=== PATIENT | female | born 1975 | race Hispanic/Latino ===

== ENCOUNTER 2019-01-25 08:05 | Outpatient (CLI) | payer OTHER ==
--- NOTE | 2019-01-25 11:05 | CT ---
CT ABDOMEN AND PELVIS WITHOUT CONTRAST: Date: 01/25/19 COMPARISON: 12/23/02. HISTORY: Palpable hard knot and pain in the left lower quadrant of the abdomen. TECHNIQUE: Multiple contiguous axial images were obtained in a CT of the abdomen and pelvis without contrast. Co ntrast was not administered as the patient had a prior anaphylactic reaction. Oral contrast was admin istered. Coronal reformats were performed. FINDINGS: The liver, gallbladder, kidneys, adrenal glands, spleen, and pancreas are unremarkable. No free air, free fluid, or stranding changes are seen in the abdomen or pelvis. The patient is status post hysterectomy. The large and small bowel are unremarkable. The appendix is normal. No abdominal or pelvic lymphadenopathy are seen. The visualized inferior thorax is unremarkable. The bones are unremarkable. There is a marker placed at the area of palpable abnormality in the left lower quadrant of the abdomen. No underlying mass or fluid collection is seen. IMPRESSION: No focal abnormality seen at the area of palpable abnormality in the left lower quadrant of the abdom en. POS: [facility]
== END 2019-01-25 08:06 | disposition home or self-care (01) ==
LOC: CT 08:05
PROVIDERS: ATTEND Specialist
DX: R10.32 Left lower quadrant pain (principal)
CPT/HCPCS: 74176

== ENCOUNTER 2019-05-18 09:05 | Outpatient (CLI) | payer OTHER ==
--- NOTE | 2019-05-18 10:16 | MMO ---
Bilateral MAMMO Bilat Screen [facility]. CLINICAL HISTORY: Patient is 44 years old and is seen for screening. The patient has no family history of breast cancer. The patient has no personal history of cancer. VIEWS: The views performed were: bilateral craniocaudal with tomosynthesis and bilateral mediolateral oblique with tomosynthesis. FILMS COMPARED: The present examination has been compared to prior imaging studies performed at [facility] on 03/19/2012 and 12/18/2015. This study has been interpreted with the assistance of computer-aided detection. MAMMOGRAM FINDINGS: The breasts are heterogeneously dense, which could obscure a lesion on mammography. There are no suspicious masses, suspicious calcifications, or new areas of architectural distortion. IMPRESSION: THERE IS NO MAMMOGRAPHIC EVIDENCE OF MALIGNANCY. A ROUTINE FOLLOW-UP MAMMOGRAM IN 1 YEAR IS RECOMMENDED. THE RESULTS OF THIS EXAM WERE SENT TO THE PATIENT. ACR BI-RADS Category 1 - Negative MAMMOGRAPHY NOTE: 1. A negative mammogram report should not delay a biopsy if a dominant of clinically suspicious mass is present. 2. Approximately 10% to 15% of breast cancers are not detected by mammography. 3. Adenosis and dense breasts may obscure an underlying neoplasm. Reported by: GEN SOARES MD Electonically Signed: [id number]
== END 2019-05-18 09:06 | disposition home or self-care (01) ==
LOC: BICMAMMO 09:05
PROVIDERS: ATTEND Family Medicine
DX: Z12.31 Encounter for screening mammogram for malignant neoplasm of breast (principal)
CPT/HCPCS: 77063; 77067

== ENCOUNTER 2020-06-22 20:14 | Emergency (ER) | payer OTHER ==
[2020-06-22] MEDS ORDERED: Albuterol 200 PUFF (6.7GM INHALER) ONE (21:21)
[2020-06-22 21:53] LABS: #Lymphocytes 1.9 thou/uL (1.20-3.40); #Monocytes 0.4 thou/uL (0.11-0.59); #Neutrophils 3.2 thou/uL (1.40-6.50); %Basophils 0.9 % (0.0-1.0); %Eosinophils 0.5 % (0.0-10.0); %Lymphocytes 33.6 % (21.0-51.0); %Monocytes 7.7 % (0.0-10.0); %Neutrophils 57.4 % (42.0-75.0); Hemoglobin 13.3 g/dL (12.0-16.0); Mean Corpuscular HGB CONC 33.9 g/dL (32.0-36.0); Mean Corpuscular Hemoglobin 30.2 pg (27.0-31.0); Mean Corpuscular Volume 89.1 fL (78.0-98.0); Mean Platelet Volume 8.4 fL (7.4-10.4); Platelet Count 214 thou/uL (130-400); RBC Distribution Width 11.3 % (11.5-14.5); White Blood Cell (WBC) Count 5.6 thou/uL (4.8-10.8)
--- NOTE | 2020-06-22 22:04 | RAD ---
Chest AP view INDICATION: History of Covid positive diagnosis; worsening chest pain COMPARISON: Prior chest regressed dated April 19, 2003 FINDINGS: Lungs: There is bilateral peripheral airspace opacities within the lungs, predominantly in a basilar distribution, consistent with multifocal pneumonia Cardiac silhouette: The cardiomediastinal silhouette appears within normal limits. Pulmonary vasculature: Normal Pleural spaces: No pleural effusion or pneumothorax is demonstrated. Upper abdomen: No abnormality seen. Osseous structures: No acute osseous abnormality. Additional findings: None. IMPRESSION: Multifocal pneumonia.
[2020-06-22 22:10] LABS: ALT (SGPT) 12 U/L (8-55); AST (SGOT) 14 U/L (5-34); Albumin 3.7 g/dL (3.5-5.0); Alkaline Phosphatase 60 U/L (40-110); Anion Gap 13 mmol/L (10-20); BUN (Urea Nitrogen) 10 mg/dL (7.0-18.7); Bilirubin, Total 0.4 mg/dL (0.2-1.2); Calc. Creatinine Clearance 0 mL/min (70-130); Calcium 8.2 mg/dL (7.8-10.44); Carbon Dioxide 20 mmol/L (22-29); Chloride 109 mmol/L (98-107); Estimated GFR-MDRD Greater than 90; Glucose 94 mg/dL (70-105); Potassium 3.4 mmol/L (3.5-5.1); Protein, Total 6.7 g/dL (6.0-8.3); Sodium 139 mmol/L (136-145)
== END 2020-06-22 22:27 | disposition home or self-care (01) ==
LOC: ERS 20:14
DX: U07.1 COVID-19 (principal); J12.89 Other viral pneumonia
CPT/HCPCS: 36415; 71045; 80053; 85025

== ENCOUNTER 2020-12-11 09:52 | Outpatient (CLI) | payer OTHER | END 2020-12-11 09:53 | disposition home or self-care (01) | LOC: BICMAMMO 09:52 | PROVIDERS: ATTEND Family Medicine | DX: Z12.31 Encounter for screening mammogram for malignant neoplasm of breast (principal) | CPT/HCPCS: 77063; 77067 ==

== ENCOUNTER 2021-08-21 08:45 | Outpatient (CLI) | payer OTHER | END 2021-08-21 08:46 | disposition home or self-care (01) | LOC: BICCT 08:45 | PROVIDERS: ATTEND Specialist | DX: R05.9 Cough, unspecified (principal); R91.1 Solitary pulmonary nodule | CPT/HCPCS: 71250 ==

== ENCOUNTER 2023-03-05 06:49 | Day surgery (SDC) | payer BC ==
[2023-02-20 10:16] VITALS: BMI 30.5
[2023-03-05] MEDS ORDERED: Lidocaine 1% (PF) 30 ML VIAL ONE (07:39)
[2023-03-05] MEDS ORDERED: EPINEPHrine 1 MG/ML AMP ONE (07:39)
[2023-03-05] MEDS ORDERED: CEFAZOLIN 2 GM VIAL ONE (07:56)
[2023-03-05] MEDS ORDERED: Sodium Chloride 0.9% 100 ML ONE (07:56)
[2023-03-05] MEDS ORDERED: Midazolam HCl 2 mg/2 ml Vial ONE (08:37)
[2023-03-05] MEDS ORDERED: Fentanyl 250 MCG/5 ML VIAL ONE (08:44)
[2023-03-05] MEDS ORDERED: Lidocaine 2% PF 100 mg/5 ml Syringe ONE (08:47)
[2023-03-05] MEDS ORDERED: PROPOFOL 40 ML ONE (08:47)
[2023-03-05] MEDS ORDERED: PROPOFOL 200 MG/20 ML VIAL ONE (09:35)
[2023-03-05] MEDS ORDERED: Lidocaine 1% PF 5 ML VIAL ONE (09:35)
[2023-03-05] MEDS ORDERED: Ondansetron PF 4 MG/2 ML Vial ONE (09:35)
[2023-03-05] MEDS ORDERED: Dexamethasone 20 MG/5 ML VIAL ONE (09:35)
[2023-03-05] MEDS ORDERED: fentaNYL 50 mcg/mL 1 mL Vial ONE ×5 (11:04→12:36)
[2023-03-05] MEDS ORDERED: Promethazine HCl 25 MG/ML VIAL ONE (13:00)
[2023-03-05] MEDS ORDERED: HYDROcodone/Acetaminophen 5/325 mg Tablet ONE (14:08)
== END 2023-03-05 14:32 | disposition home or self-care (01) ==
LOC: SDC 06:49
PROVIDERS: ATTEND Orthopaedic Surgery
PROC: 01N40ZZ Release Ulnar Nerve, Open Approach (ICD-10-PCS; principal; 2023-03-05)
PROC: 0LN60ZZ Release Left Lower Arm and Wrist Tendon, Open Approach (ICD-10-PCS; principal; 2023-03-05)
DX: M77.12 Lateral epicondylitis, left elbow (principal); G56.22 Lesion of ulnar nerve, left upper limb; Z79.899 Other long term (current) drug therapy; Z91.041 Radiographic dye allergy status; Z91.013 Allergy to seafood; T81.89XA Other complications of procedures, not elsewhere classified, initial encounter
CPT/HCPCS: J0171; J1100; J2001; J2250; J2405; J2550; J2704; J3010; J3490

== ENCOUNTER 2023-06-23 09:50 | Outpatient (CLI) | payer BC | END 2023-06-23 09:51 | disposition home or self-care (01) | LOC: BICMAMMO 09:50 | PROVIDERS: ATTEND Family Medicine | DX: Z12.31 Encounter for screening mammogram for malignant neoplasm of breast (principal) | CPT/HCPCS: 77063; 77067 ==